=== PATIENT | female | born 1940 | race Caucasian/White ===

== ENCOUNTER 2016-11-04 22:37 | Emergency (ER) | payer OTHER ==
[~2016-11-04] VITALS: Ht 165.1 cm; Wt 98.5 kg
[2016-11-04 23:53] LABS: EOSINOPHIL (%) 2.3 % (0-5); EOSINOPHIL COUNT 0.1 K/uL (0-0.3); HEMATOCRIT 40.2 % (36.0-46.0); IMMATURE GRANULOCYTE (%) 0.2 % (0.0-0.7); IMMATURE GRANULOCYTE COUNT 0.1 K/uL; LYMPHOCYTE COUNT 0.4 K/uL (1.0-2.8); MCH 32.3 PG (29.0-34.0); MCHC 33.6 G/DL (30.0-36.0); MCV 96.2 FL (83-99); MEAN PLAT.VOLUME 10.7 uM^3 (9.5-12.4); MONOCYTE (%) 4.8 % (3-12); MONOCYTE COUNT 0.3 K/uL (0-0.8); NEUTROPHIL (%) 84.3 % (45-76); NEUTROPHIL COUNT 4.4 K/uL (1.8-6.4); PLATELET COUNT 166 K/uL (156-360); RBC DIS.WIDTH-CV 12.9 % (11.8-14.6); RBC DIS.WIDTH-SD 43.8 % (39-53); RED BLOOD COUNT 4.18 M/uL (3.80-5.20); WHITE BLOOD COUNT 5.2 K/uL (4.1-10.2)
[2016-11-04 23:58] LABS: CHLORIDE 106 mEq/L (99-109); POTASSIUM 3.8 mEq/L (3.7-5.4); SODIUM 139 mEq/L (136-147)
[2016-11-05 00:01] LABS: GLUCOSE 118 mg/dL (70-99)
[2016-11-05 00:02] LABS: ANION GAP 9 MEQ/L (2-14)
[2016-11-05 00:03] LABS: TOTAL BILIRUBIN 0.6 mg/dL (0.0-1.0)
[2016-11-05 00:04] LABS: ALKALINE PHOSPHATASE 62 IU/L (3-129); GFR ESTIMATE (CALCULATED) > 59 mL/min/
[2016-11-05 00:05] LABS: UREA NITROGEN (BUN) 9 mg/dL (9-23)
[2016-11-05 00:08] LABS: CREATINE KINASE 46 IU/L (1-294); LIPASE 26 U/L (1.0-51.0)
[2016-11-05 00:11] LABS: TROP-I INTERPRETATION NEGATIVE; TROPONIN-I < 0.01 ng/mL (0.0-0.30)
[2016-11-05 00:52] LABS: ADD MIUA? YES; BILIRUBIN SMALL; BLOOD NEGATIVE; GLUCOSE (STRIP) NEGATIVE; KETONES 15; LEUKOCYTES MODERATE; PROTEIN (STRIP) TRACE; SPECIFIC GRAVITY 1.011 (1.000-1.030)
[2016-11-05 00:54] LABS: COLOR RED ((YELLOW))
[2016-11-05 01:26] LABS: RED BLOOD CELLS NONE SEEN /HPF (0-5)
[2016-11-05 01:27] LABS: EPITHELIAL CELLS RARE; MUCUS NONE SEEN
[2016-11-05 01:28] LABS: BACTERIA 1+; CASTS NONE SEEN /LPF; CRYSTALS NONE SEEN; UCUL ADDED? NO
[2016-11-05 01:30] LABS: NITRITE NEGATIVE
[2016-11-05] MEDS ORDERED: LEVAQUIN500 MG PO (05:32)
[2016-11-05 05:51] VITALS: BP 128/70
== END 2016-11-05 05:52 | disposition home or self-care (01) ==
LOC: EME → EDBD 22:37 → EME 11-05 05:52
PROVIDERS: Emergency Medicine
DX: N30.00 Acute cystitis without hematuria (principal); R42 Dizziness and giddiness
CPT/HCPCS: 70450; 74176; 80053; 81003; 82550; 83605; 83690; 84484; 85025; 87040; 93005; 99281; 99285; J1200; J2765; J3010; J7030